=== PATIENT | male | born 2000 | race Two or more races ===

== ENCOUNTER 2020-04-02 22:23 | Emergency (ER) | payer OTHER ==
[~2020-04-02] VITALS: Ht 177.8 cm; Wt 90.7 kg
[2020-04-02 22:24] VITALS: BP 150/97; Ht 177.8 cm; Wt 90.7 kg
== END 2020-04-02 22:35 | disposition other institution (70) ==
LOC: ED 22:23
DX: F16.90 Hallucinogen use, unspecified, uncomplicated (principal); Z02.79 Encounter for issue of other medical certificate